=== PATIENT | female | born 1995 | race Hispanic/Latino ===

== ENCOUNTER 2019-09-05 19:11 | Inpatient (IN) | payer SELFPAY ==
[~2019-09-05] VITALS: Ht 160 cm; Wt 107.0 kg
[2019-09-05] MEDS ORDERED: ONDANSETRON HCL 4 MG/2 ML VIAL ONE (19:36)
[2019-09-05] MEDS ORDERED: MORPHINE SULFATE 4 MG/1ML SYG ONE ×2 (19:36→20:41)
[2019-09-05] MEDS ORDERED: SODIUM CHLORIDE 0.9% 1000ML 1,000 ML IV ONE ×2 (19:37→20:54)
[2019-09-05 19:39] LABS: BASOPHILS % (AUTO) 0.4 % (0.0-5.0); EOSINOPHILS % (AUTO) 0.4 % (0.0-8.0); LYMPHOCYTES % (AUTO) 23.4 % (21.0-51.0); MEAN CORPUSCULAR HEMOGLOBIN 32.1 pg (27.0-33.0); MEAN CORPUSCULAR HGB CONC 34.3 g/dL (32.0-36.0); MEAN CORPUSCULAR VOLUME 93.7 fL (80-100); MONOCYTES % (AUTO) 6.7 % (3.0-13.0); NEUTROPHILS % (AUTO) 69.1 % (40.0-77.0); PLATELET COUNT (AUTO) 353 K/uL (130-400); RED BLOOD CELL COUNT(AUTO) 4.27 MIL/uL (4.00-5.50); RED CELL DISTRIBUTION WIDTH 12.4 % (11.0-15.5); WHITE BLOOD COUNT (AUTO) 10.4 K/uL (4.8-10.8)
[2019-09-05 19:48] LABS: CREATININE 0.9 mg/dL (0.5-1.5); POTASSIUM 3.5 mmol/L (3.5-5.1)
[2019-09-05 19:59] LABS: ALBUMIN 3.9 g/dL (3.5-5.0); BILIRUBIN,TOTAL 3.2 mg/dL (0.2-1.0); TOTAL PROTEIN, SERUM 8.2 g/dL (6.0-8.3)
[2019-09-05 20:41] LABS: APPEARANCE,URINE CLOUDY (CLEAR); BILIRUBIN,URINE MODERATE (NEGATIVE); COLOR,URINE ORANGE (YELLOW); GLUCOSE, URINE (UA) NEGATIVE (NEGATIVE); KETONES,URINE NEGATIVE (NEGATIVE); LEUKOCYTE ESTERASE ,URINE SMALL (NEGATIVE); NITRATE,URINE POSITIVE (NEGATIVE); OCCULT BLOOD,URINE TRACE-INTACT (NEGATIVE); PROTEIN,URINE TRACE mg/dL (NEGATIVE)
[2019-09-05 21:03] LABS: BACTERIA,URINE Moderate /HPF (None Seen); MUCUS,URINE Few LPF (None Seen)
[2019-09-05] MEDS: CEFTRIAXONE SODIUM 1 GM IVP SCH (21:15)
[2019-09-05] MEDS ORDERED: CEFTRIAXONE SODIUM 1 GM ONE (21:44)
[2019-09-05 23:05] VITALS: BP 126/79
[2019-09-05] MEDS: MORPHINE SULFATE 2 MG/ML 1ML SYG IVP PRN (23:25)
[2019-09-05] MEDS: SODIUM CHLORIDE 0.9% 1000ML 1,000 ML IV SCH (23:32)
--- NOTE | 2019-09-05 23:45 | NUR ---
ADMITTED PATIENT. PATIENT IN SEVERE ABDOMINAL PAIN. MORPHINE ADMINISTERED. PATIENT HAD AN EMESIS OF ORANGE COLOR AND WITH FOOD. PATIENT GIVEN ZOFRAN AND POTASSIUM IV. PATIENT RESTING COMFORTABLE.
[2019-09-06] MEDS: POTASSIUM CHLORIDE 20MEQ/100ML 100 ML IV PRN (00:15)
[2019-09-06] MEDS: LIDOCAINE HCL-MPF 1% 2ML VIAL IV PRN (00:16)
[2019-09-06] MEDS ORDERED: FLU VACC QS2019-20 36MOS UP/PF 60 MCG/0.5 ML ML IM ONE ×2 (03:43→09:00)
[2019-09-06] MEDS: MORPHINE SULFATE 2 MG/ML 1ML SYG IVP PRN ×3 (03:44→12:07)
[2019-09-06] MEDS: ONDANSETRON HCL 4 MG/2 ML VIAL IVP PRN ×5 (03:45→22:10)
[2019-09-06 03:56] VITALS: BP 108/68
[2019-09-06] MEDS: SODIUM CHLORIDE 0.9% 1000ML 1,000 ML IV SCH ×3 (04:16→12:07)
[2019-09-06 05:25] LABS: HEMOGLOBIN A1C 5.2 % (4.0-6.0)
[2019-09-06 05:36] LABS: ALBUMIN 3.2 g/dL (3.5-5.0); BILIRUBIN,TOTAL 3.2 mg/dL (0.2-1.0); CREATININE 0.8 mg/dL (0.5-1.5); POTASSIUM 4.6 mmol/L (3.5-5.1); TOTAL PROTEIN, SERUM 6.8 g/dL (6.0-8.3)
[2019-09-06] MEDS: INSULIN HUMULIN R 100 UNIT/ML 3ML SQ SCH ×3 (05:40→11:35)
[2019-09-06 06:05] LABS: BASOPHILS % (AUTO) 0.2 % (0.0-5.0); HEMATOCRIT 36.9 % (36-48); LYMPHOCYTES % (AUTO) 10.1 % (21.0-51.0); MEAN CORPUSCULAR VOLUME 94.2 fL (80-100); MONOCYTES % (AUTO) 5.6 % (3.0-13.0); NEUTROPHILS % (AUTO) 84.1 % (40.0-77.0); PLATELET COUNT (AUTO) 316 K/uL (130-400); RED BLOOD CELL COUNT(AUTO) 3.91 MIL/uL (4.00-5.50); RED CELL DISTRIBUTION WIDTH 12.3 % (11.0-15.5)
[2019-09-06 07:46] VITALS: BP 112/65
[2019-09-06] MEDS: FAMOTIDINE/PF 20 MG/2 ML VIAL IV SCH ×2 (08:58→20:27)
[2019-09-06] MEDS: CEFTRIAXONE SODIUM 1 GM IVP SCH ×2 (08:58→20:27)
[2019-09-06] MEDS: ENOXAPARIN SODIUM 30 MG/0.3 ML SQ SCH (08:59)
--- NOTE | 2019-09-06 11:23 | NUR ---
DCP CM met with pt discussed dc plans. Pt is independent prior to admission, lives at home w/parents. Denies any equipments/services. Feels safe to go back home, parents able to assist with transportation and needs as necessary. Pt is a self pay, [facility] assisting, given [employer] packet. DC plan to home once stable. CM to cont to follow up. Addendum: 09/06/19 at 1125 by ANIYAH STEVEN LVN CM Amended: Links added.
[2019-09-06 11:52] VITALS: BP 113/57
--- NOTE | 2019-09-06 12:31 | NUR ---
NUTRITION EDUCATION ANDREY provided Pancreatitis Nutrition Education. ANDREY reviewed reference materials and handouts with Pt. Pt verbalized understanding. Pt with no questions at this time. ANDREY encouraged Pt to notify as questions or concerns arise. Addendum: 09/06/19 at [address] Amended: Links added.
--- NOTE | 2019-09-06 12:36 | NUR ---
RD Notification Pt is 23y/o female, admitted for Acute pancreatitis with no noted additional past medical history. RD provided Pancreatitis Nutrition education to Pt. Pt verbalized understanding. RD encouraged Pt to notify as questions and concerns arise. Pt NPO at this time with elevated Lipase (). Recommend to continue NPO at this time. When medically feasible, Recommend to gradually advance diet to goal of GI Soft/Buchanan, LOW FAT Diet order. Pt LBM 09/05/19. Pt monitored labs: T. Bili 3.2, AST 166, ALT 471, Alb 3.2, Lipase 19,952. RD to continue to monitor. Please notify RD as additional nutrition concerns arise. Thank you. Addendum: 09/06/19 at [address] RD Amended: Links added.
[2019-09-06] MEDS ORDERED: MEPERIDINE HCL/PF 25 MG/0.5 ML AMPUL IVP PRN (15:15)
[2019-09-06 16:00] VITALS: BP 111/60
[2019-09-06] MEDS: LACTATED RINGERS 1000ML 1,000 ML IV SCH ×2 (16:05→20:27)
[2019-09-06] MEDS: MEPERIDINE HCL/PF 25 MG/0.5 ML AMPUL IVP PRN ×2 (16:11→22:04)
[2019-09-06] MEDS ORDERED: DEXTROSE 50%-WATER 50 ML DISP.SYRIN IV PRN (19:15)
[2019-09-06] MEDS ORDERED: GLUCAGON 1MG KIT 1 MG ML IM PRN (19:15)
[2019-09-06 19:54] VITALS: BP 110/74
[2019-09-06] MEDS: ZOSYN 3.375GM+NS 50ML 50 ML IV SCH (20:28)
[2019-09-07] MEDS: LACTATED RINGERS 1000ML 1,000 ML IV SCH ×5 (00:09→19:53)
[2019-09-07 00:19] VITALS: BP 122/71
[2019-09-07] MEDS: ZOSYN 3.375GM+NS 50ML 50 ML IV SCH (03:06)
[2019-09-07] MEDS: ONDANSETRON HCL 4 MG/2 ML VIAL IVP PRN ×2 (03:07→07:54)
[2019-09-07] MEDS: MEPERIDINE HCL/PF 25 MG/0.5 ML AMPUL IVP PRN ×2 (03:07→07:55)
[2019-09-07 03:42] VITALS: BP 126/69
[2019-09-07 03:50] LABS: HEMATOCRIT 31.8 % (36-48); MEAN CORPUSCULAR HEMOGLOBIN 31.9 pg (27.0-33.0); MEAN CORPUSCULAR VOLUME 93.8 fL (80-100); PLATELET COUNT (AUTO) 274 K/uL (130-400); RED BLOOD CELL COUNT(AUTO) 3.39 MIL/uL (4.00-5.50); RED CELL DISTRIBUTION WIDTH 12.3 % (11.0-15.5); WHITE BLOOD COUNT (AUTO) 9.6 K/uL (4.8-10.8)
[2019-09-07 04:06] LABS: CREATININE 0.7 mg/dL (0.5-1.5); POTASSIUM 3.3 mmol/L (3.5-5.1); TOTAL PROTEIN, SERUM 6.2 g/dL (6.0-8.3)
[2019-09-07 04:30] LABS: BILIRUBIN,DIRECT 0.4 mg/dL (0.0-0.3)
[2019-09-07] MEDS: LIDOCAINE HCL-MPF 1% 2ML VIAL IV PRN (04:44)
[2019-09-07] MEDS: POTASSIUM CHLORIDE 20MEQ/100ML 100 ML IV PRN (04:45)
[2019-09-07 07:14] LABS: HEPATITIS A ANTIBODY IGM Negative (Negative); HEPATITIS B CORE IGM Negative (Negative); HEPATITIS Bs ANTIGEN SCREEN P Negative (Negative)
[2019-09-07] MEDS: FAMOTIDINE/PF 20 MG/2 ML VIAL IV SCH ×2 (07:54→20:28)
[2019-09-07 08:00] VITALS: BP 100/61
[2019-09-07] MEDS: ENOXAPARIN SODIUM 30 MG/0.3 ML SQ SCH (09:00)
[2019-09-07] MEDS: POTASSIUM CHLORIDE 20 MEQ ERTAB PO SCH (09:17)
[2019-09-07] MEDS: LEVOFLOXACIN 500 MG/D5W 100 ML 100 ML IV SCH (09:17)
[2019-09-07 11:43] VITALS: BP 116/64
[2019-09-07] MEDS: KETOROLAC TROMETHAMINE 30MG/ML IV PRN ×2 (14:51→20:28)
[2019-09-07] MEDS: MAGNESIUM 2GM PREMIX 50ML 50 ML IV PRN (14:51)
[2019-09-07 16:00] VITALS: BP 105/64
[2019-09-07 19:15] VITALS: BP 115/67
[2019-09-07] MEDS ORDERED: DOCUSATE SODIUM 100 MG CAP PO PRN (20:00)
[2019-09-08] VITALS: BP 122/75
[2019-09-08] MEDS: LACTATED RINGERS 1000ML 1,000 ML IV SCH (00:13)
[2019-09-08] MEDS: MEPERIDINE HCL/PF 25 MG/0.5 ML AMPUL IVP PRN (00:14)
[2019-09-08 04:00] VITALS: BP 122/70
[2019-09-08 04:54] LABS: HEMATOCRIT 29.1 % (36-48); MEAN CORPUSCULAR HEMOGLOBIN 33.5 pg (27.0-33.0); MEAN CORPUSCULAR HGB CONC 35.5 g/dL (32.0-36.0); MEAN CORPUSCULAR VOLUME 94.3 fL (79-99); PLATELET COUNT (AUTO) 250 K/uL (130-400); RED BLOOD CELL COUNT(AUTO) 3.09 MIL/uL (4.00-5.50); RED CELL DISTRIBUTION WIDTH 11.8 % (11.0-15.5); WHITE BLOOD COUNT (AUTO) 9.4 K/uL (4.8-10.8)
[2019-09-08 05:13] LABS: ALBUMIN 2.8 g/dL (3.5-5.0); BILIRUBIN,TOTAL 0.8 mg/dL (0.2-1.0); CREATININE 0.6 mg/dL (0.5-1.5); PHOSPHORUS 3.4 mg/dL (2.5-4.9); POTASSIUM 3.6 mmol/L (3.5-5.1); TOTAL PROTEIN, SERUM 6.2 g/dL (6.0-8.3)
--- NOTE | 2019-09-08 05:45 | NUR ---
NOTE PATIENT HAS A BLOOD SUGAR 59. REPORTS FEELING WELL. DESCRIBES ABDOMINAL PAIN "SORE ONLY". DENIES NEEDING ANY PAIN MEDICATION AT THIS TIME. REPORTS THAT SHE FEELS SHE HAS SLEPT WELL TONIGHT. NOTIFIED HER OF ADMINISTRATION OF DEXTROSE 50% TO TREAT THE LOW BLOOD SUGAR PER PROTOCOL.
[2019-09-08] MEDS: KETOROLAC TROMETHAMINE 30MG/ML IV PRN ×2 (06:03→20:08)
[2019-09-08 08:00] VITALS: BP 106/55
[2019-09-08] MEDS: FAMOTIDINE/PF 20 MG/2 ML VIAL IV SCH ×2 (08:29→20:05)
[2019-09-08] MEDS: LEVOFLOXACIN 500 MG/D5W 100 ML 100 ML IV SCH (08:29)
[2019-09-08] MEDS: POTASSIUM CHLORIDE 20 MEQ ERTAB PO SCH (08:30)
[2019-09-08] MEDS: ENOXAPARIN SODIUM 30 MG/0.3 ML SQ SCH (09:00)
[2019-09-08 11:56] VITALS: BP 118/69
[2019-09-08] MEDS: DEXTROSE 5%-LACTATED RINGERS 1,000 ML IV SCH ×3 (14:24→22:21)
[2019-09-08 16:00] VITALS: BP 123/81
[2019-09-08 20:00] VITALS: BP 113/69
[2019-09-09] VITALS (24 sets, daily range): BP systolic 98–136; BP diastolic 54–90
[2019-09-09] MEDS: DEXTROSE 5%-LACTATED RINGERS 1,000 ML IV SCH (05:00)
[2019-09-09] MEDS: KETOROLAC TROMETHAMINE 30MG/ML IV PRN ×2 (06:40→20:20)
[2019-09-09] MEDS: POTASSIUM CHLORIDE 20 MEQ ERTAB PO SCH (08:30)
[2019-09-09] MEDS: ENOXAPARIN SODIUM 30 MG/0.3 ML SQ SCH (09:00)
[2019-09-09] MEDS ORDERED: SUCCINYLCHOLINE 200MG/10ML SYR ONE (10:34)
[2019-09-09] MEDS ORDERED: ROCURONIUM 10MG/1ML SYR 10 MG/ML ML ONE (10:34)
[2019-09-09] MEDS ORDERED: LIDOCAINE PF 2% 5ML ABBOJECT ONE (10:34)
[2019-09-09] MEDS ORDERED: PROPOFOL 10 MG/ML 20ML VIAL IV ONE (10:34)
[2019-09-09] MEDS ORDERED: FENTANYL CITRATE PF 50 MCG/1 ML 2ML VIAL ONE (10:34)
[2019-09-09] MEDS: FAMOTIDINE/PF 20 MG/2 ML VIAL IV SCH ×2 (10:35→20:15)
[2019-09-09] MEDS: LEVOFLOXACIN 500 MG/D5W 100 ML 100 ML IV SCH (10:35)
[2019-09-09] MEDS ORDERED: BUPIVACAINE/PF 0.5% 30ML VIAL ONE (10:36)
[2019-09-09] MEDS ORDERED: LACTATED RINGERS 1000ML 1,000 ML IV ONE (10:44)
[2019-09-09] MEDS ORDERED: MIDAZOLAM HCL 1 MG/ML 2ML VIAL ONE (11:14)
--- NOTE | 2019-09-09 11:30 | NUR ---
TRANSFERRED TO OR; LAP [facility]I
[2019-09-09] MEDS ORDERED: KETOROLAC TROMETHAMINE 30MG/ML ONE (12:14)
[2019-09-09] MEDS ORDERED: NEOSTIGMINE 5MG/5ML SYR IV ONE ×2 (12:14→12:28)
[2019-09-09] MEDS ORDERED: GLYCOPYRROLATE 1 MG/5 ML SYRINGE ONE (12:14)
[2019-09-09] MEDS ORDERED: ONDANSETRON HCL 4 MG/2 ML VIAL ONE (12:15)
[2019-09-09] MEDS ORDERED: MEPERIDINE-PF 25 MG/ML SYG ONE ×3 (12:15→13:07)
--- NOTE | 2019-09-09 14:30 | NUR ---
S/P LAP JAMI X3 INCISIONS NO BLEEDING NOR SWELLING, DENIES ANY DISCOMFORT AT THIS TIME.
[2019-09-09] MEDS ORDERED: ACETAMINOPHEN 325 MG TAB ONE (20:13)
[2019-09-09] MEDS ORDERED: ACETAMINOPHEN 325 MG TAB PO PRN ×2 (20:15)
[2019-09-09] MEDS: MAGNESIUM 2GM PREMIX 50ML 50 ML IV PRN (20:16)
[2019-09-10 03:00] VITALS: BP 113/66
[2019-09-10 06:21] LABS: POTASSIUM 3.5 mmol/L (3.5-5.1)
[2019-09-10 08:00] VITALS: BP 115/75
--- NOTE | 2019-09-10 08:00 | NUR ---
PT AAO X3 REVIEW PLAN OF CARE. ABD SM DRSG DRY AND CLEAN, DENIES ANY PAIN . CALL LIGHT IN REACH . ENCOURAGE AMBULATION AND I.S RESP EXCERSICES . DONE WELL UP [id number]
[2019-09-10] MEDS: LEVOFLOXACIN 500 MG/D5W 100 ML 100 ML IV SCH (08:25)
[2019-09-10] MEDS: KETOROLAC TROMETHAMINE 30MG/ML IV PRN (08:25)
[2019-09-10] MEDS: FAMOTIDINE/PF 20 MG/2 ML VIAL IV SCH (08:25)
[2019-09-10] MEDS: ENOXAPARIN SODIUM 30 MG/0.3 ML SQ SCH (08:26)
[2019-09-10] MEDS: POTASSIUM CHLORIDE 20 MEQ ERTAB PO SCH ×2 (08:30→15:15)
[2019-09-10 11:30] VITALS: BP 132/84
[2019-09-10] MEDS ORDERED: HYDROCODONE/ACETAMINOPHEN 7.5/325 MG TAB PO PRN (11:30)
[2019-09-10 16:00] VITALS: BP 128/62
--- NOTE | 2019-09-10 18:00 | NUR ---
DISCHARGE SUMMARY WAS REVIEW .WITH PT. OF DISCHARGE CARE, AND APPT AND TO FOLLOWUP WITH THE SURGEON. .. . SL TO HER LFA , ,, REMOVED, WITH NO HEMATOMA NOTED. A GRACIELA PINO APPLICATION ON
== END 2019-09-10 18:03 | disposition home or self-care (01) | DRG 418 ==
LOC: EDH 19:11 → EDHIP 19:12 → 3BH 21:50
PROVIDERS: ADMIT Internal Medicine; ATTEND Internal Medicine
PROC: 3E02340 Introduction of Influenza Vaccine into Muscle, Percutaneous Approach (ICD-10-PCS; 2019-09-06)
PROC: 0FT44ZZ Resection of Gallbladder, Percutaneous Endoscopic Approach (ICD-10-PCS; principal; 2019-09-09 11:16)
DX: K85.10 Biliary acute pancreatitis without necrosis or infection (principal); N39.0 Urinary tract infection, site not specified; Z68.41 Body mass index [BMI] 40.0-44.9, adult; E66.01 Morbid (severe) obesity due to excess calories; K80.20 Calculus of gallbladder without cholecystitis without obstruction; Z23 Encounter for immunization; E16.2 Hypoglycemia, unspecified; E87.6 Hypokalemia; K75.9 Inflammatory liver disease, unspecified; K76.0 Fatty (change of) liver, not elsewhere classified; R73.9 Hyperglycemia, unspecified; E87.5 Hyperkalemia
CPT/HCPCS: 36415; 74181; 76705; 80048; 80053; 80061; 80074; 80076; 81001; 82948; 83036; 83690; 83735; 84100; 84132; 84145; 84702; 85025; 85027; 87077; 87088; 87186; G0008; G0378; J0330; J0696; J1650; J1885; J1956; J2001; J2175; J2250; J2270; J2405; J2543; J2704; J2710; J3010; J3475; J3480; J3490; J7030; J7070; J7120; Q2035